=== PATIENT | female | born 1985 | race Caucasian/White ===

== ENCOUNTER → 2021-04-04 | Day surgery (SDC) | payer OTHER ==
[~2021-04-04] MED LIST: HYDROCODON-ACE1 EAC4 PO; IBUPROFEN600 MG PO; IRON PO; LEXAPRO10 MG PO; MECLIZINE HCL25 MG PO; MIRAPEX0.125 MG PO
[2021-04-04 08:12] LABS: HEMOGLOBIN 11.3 gm/dl (12.3-15.3); RED BLOOD COUNT 4.82 M/UL (4.00-5.10)
== END | disposition home or self-care (01) ==
LOC: OR 07:26
PROVIDERS: Obstetrics & Gynecology
DX: N93.8 Other specified abnormal uterine and vaginal bleeding (principal); F51.05 Insomnia due to other mental disorder; F41.1 Generalized anxiety disorder; Z52.4 Kidney donor; N94.6 Dysmenorrhea, unspecified; F17.210 Nicotine dependence, cigarettes, uncomplicated; F32.9 Major depressive disorder, single episode, unspecified; E66.9 Obesity, unspecified; G25.81 Restless legs syndrome; Z68.36 Body mass index [BMI] 36.0-36.9, adult; D50.9 Iron deficiency anemia, unspecified; Z88.0 Allergy status to penicillin
CPT/HCPCS: 81001; 84703; 85025; J1100; J1885; J2001; J2250; J2405; J2704; J2765; J2795; J3010; J7030; J7120

== ENCOUNTER → 2022-02-03 | Outpatient (CLI) | payer OTHER ==
[2022-02-03 07:45] LABS: RED BLOOD COUNT 4.63 M/UL (4.00-5.10); WHITE BLOOD COUNT 7.1 K/UL (4.5-11.0)
[2022-02-03 08:12] LABS: BUN/CREATININE RATIO 25 (0-10)
== END ==
LOC: LAB 07:19
PROVIDERS: Nurse Practitioner Family
DX: F41.9 Anxiety disorder, unspecified (principal)
CPT/HCPCS: 36415; 80053; 80061; 82607; 82746; 83036; 83540; 83550; 83690; 84439; 84443; 85025

== ENCOUNTER 2022-05-04 09:46 | Emergency (ER) | payer OTHER ==
[2022-05-04 10:41] LABS: HEMOGLOBIN 15.5 gm/dl (12.3-15.3); RED BLOOD COUNT 4.96 M/UL (4.00-5.10); WHITE BLOOD COUNT 13.2 K/UL (4.5-11.0)
[2022-05-04 10:58] LABS: BUN/CREATININE RATIO 26 (0-10)
[2022-05-04] MEDS ORDERED: ZOFRAN ODT 4 MG4 MG GT (11:56)
[2022-05-04] MEDS ORDERED: PERCOCET 5/325 T1 EA PO (11:56)
== END 2022-05-04 12:20 | disposition home or self-care (01) ==
LOC: ER1 09:46
PROVIDERS: Family Medicine
DX: R10.9 Unspecified abdominal pain (principal); F17.290 Nicotine dependence, other tobacco product, uncomplicated; Z87.442 Personal history of urinary calculi; Z88.0 Allergy status to penicillin
CPT/HCPCS: 80053; 81001; 83690; 85025; 96374; 96375; 96376; 99284; J2270; J2405